=== PATIENT | male | born 1995 | race Caucasian/White ===

== ENCOUNTER 2017-07-08 10:10 | Day surgery (SDC) | payer BC ==
--- NOTE | 2017-07-07 10:15 | HP ---
PREOPERATIVE HISTORY AND PHYSICAL: DATE OF SURGERY/ADMISSION: 07/08/17 - [facility] DATE OF OFFICE VISIT/ENCOUNTER: 07/06/17. ATTENDING SURGEON: Courtney Sifuentes MD.* (DICTATED BY SHANTAL AMBROSIO) PROCEDURE: Right wrist triangular fibrocartilage complex repair or debridement , arthroscopy, scapholunate ligament repair. CHIEF COMPLAINT: Right wrist pain. HISTORY OF PRESENT ILLNESS: This is a 22-year-old male. He is a student at [employer] and he injured his right wrist on 05/16/17. He was playing soccer and fell on an outstretched right hand. He was initially evaluated in [place] and had an x-ray there, which showed no sign of fracture. He was subsequently given some physical therapy exercises to workout on. However, he has continued to have pain since then and ended up seeing his primary care physician, Dr. Ferraro who ordered an MRI. The MRI shows a scapholunate ligament tear and a TFCC tear. The patient had been wearing a thumb spica brace. After evaluation by Dr. Sifuentes and review of the MRI, the patient has consented to proceed with surgical intervention at this time with a right wrist arthroscopy and a TFCC repair, debridement, scapholunate ligament repair. PAST MEDICAL HISTORY: Mal-Schlatter disease. PAST SURGICAL HISTORY: None. CURRENT MEDICATIONS: None. ALLERGIES: AMOXICILLIN causes hives. FAMILY MEDICAL HISTORY: Diabetes, hypertension, stroke, rheumatoid arthritis. 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 He denies tobacco use and recreational drug use. He does drink alcohol on occasion. REVIEW OF SYSTEMS: General: Negative for fevers, chills or night sweats. Unexplained weight loss or gain. No known anesthesia problems. HEENT: Negative for headache, lightheadedness or syncopal episodes, visual changes. Positive for sore throat. Integumentary: Negative for abrasions, lesions or open wounds. Cardiothoracic: Negative for hypertension, chest pain, palpitations, edema. Respiratory: Negative for shortness of breath with exertion, chronic cough, wheezing. GI: Negative for nausea, vomiting, diarrhea , constipation, or GERD. : Negative for nocturia, urinary frequency, urgency , history of UTIs, and kidney problems. Musculoskeletal: Positive for current complaints. Neurologic: Negative for paresthesias, numbness, history of seizure or stroke, poor balance. Endocrine: Negative for diabetes and thyroid issues. Hematologic: Negative for easy bruising, anemia, bleeding disorders, history of DVT. Infectious Disease: Negative for history of MRSA, hepatitis C, HIV. PHYSICAL EXAMINATION GENERAL: Well-developed, well-nourished 22-year-old male, in no acute distress. VITAL SIGNS: Height 5 feet 8 inches, weight 162 pounds, pulse rate 76, and blood pressure 140/78. HEENT: Normocephalic, atraumatic. Pupils are equal, round, and reactive to light and accommodation. Extraocular movements are intact. Throat is clear. NECK: Supple. No palpable lymph nodes. PULMONARY: Lungs are clear to auscultation bilaterally. No wheezes, rales or rhonchi. CARDIOVASCULAR: Regular rate and rhythm. S1, S2. No murmurs, rubs or gallops. No edema. ABDOMEN: Positive bowel sounds, soft, nontender. NEUROLOGICAL: Alert and oriented x3. Cranial nerves II through XII are intact. Sensation is intact to light touch. MUSCULOSKELETAL: On exam of the right wrist, there is no visible swelling or deformity. He has tenderness to palpation at the scapholunate junction and mild tenderness across the radiocarpal joint. Positive Robertson click test. Mild tenderness at the snuff box. He had good motion in his fingers as well as the wrist, but some pain with wrist motion. Neurovascular function is intact. IMAGING STUDIES: MRI shows the scapholunate ligament tear and a TFCC tear on the right. PLAN: The patient is scheduled to undergo a right wrist triangular fibrocartilage complex repair debridement, arthroscopy, scapholunate ligament repair with Dr. Sifuentes on 07/08/17. He will return to the office in 10 days for postoperative followup and suture removal. A prescription for Campbell was e- scribed to the patient's pharmacy for postoperative pain management. SHANTAL AMBROSIO [id number]/[facility] #: [id number] MTDD
[~2017-07-08 10:10] MED LIST: Buffered Lidocaine 0.9% SYRIN* 5 ML/SYR SYRINGE INTRADERM ONE; Bupivacaine 0.5% SDV PF* 30ML VIAL ONE; Sodium Citrate/Citric Acid* 15 ML UDC ONE; Sodium Citrate/Citric Acid* 15 ML UDC PO ONE
[2017-07-08] MEDS ORDERED: Clindamycin 900 MG IVPREMIX(* 900 MG/50 ML SDV IV ONE (10:23)
[2017-07-08] MEDS ORDERED: Midazolam* 1 MG/ML 2 ML VIAL (2 MG) ONE (12:06)
[2017-07-08] MEDS ORDERED: Lidocaine 2% PF * 5 ML VIAL ONE (12:06)
[2017-07-08] MEDS ORDERED: Propofol* 10 MG/ML 20 ML BTL IV PUSH ONE (12:06)
[2017-07-08] MEDS ORDERED: fentaNYL* 50 MCG/ML 2 ML VIAL (100 MCG VIAL) ONE (12:07)
[2017-07-08] MEDS ORDERED: Ketorolac INJ* 30 MG/ML 1 ML VIAL ONE (12:28)
[2017-07-08] MEDS ORDERED: Dexamethasone IV* 4 MG/ML 1 ML (4 MG) ONE (12:28)
[2017-07-08] MEDS ORDERED: fentaNYL* 50 MCG/ML 2 ML VIAL (100 MCG VIAL) IV PRN (12:40)
[2017-07-08] MEDS ORDERED: Naloxone* 0.4 MG/ML 1 ML VIAL IV PRN (12:40)
[2017-07-08] MEDS ORDERED: Ondansetron ODT TAB* 4 MG PO PRN (12:40)
[2017-07-08 13:52] VITALS: BP 132/78
[2017-07-08] MEDS ORDERED: HYDROcodone/ACETAMIN 5-325 MG* 1 TAB ONE (14:20)
--- NOTE | 2017-07-09 05:16 | OP ---
DATE OF OPERATION: 07/08/17 [facility] DATE OF : [birth year] SURGEON: Courtney Sifuentes MD FIELD TALENT QUALIFICATION SPECIALIST: SHANTAL Palacios ANESTHESIA: General. PRE-OP DIAGNOSIS: Scapholunate ligament tear and TFCC tear of the right wrist. POST-OP DIAGNOSIS: TFCC tear of the right wrist. OPERATIVE PROCEDURE: Right wrist arthroscopy and TFCC repair. ESTIMATED BLOOD LOSS: Zero. TOURNIQUET TIME: About 45 minutes. INDICATIONS FOR PROCEDURE: Reji is a 22-year-old male who injured his right wrist playing soccer in the beginning of May. He has persistent wrist pain. His primary care doctor ordered an MRI which showed, by the radiologist reading , a TFCC tear and a scapholunate ligament tear. He presents for right wrist arthroscopy and repair. DESCRIPTION OF PROCEDURE: The patient was brought to the operating room, was given a general anesthetic and placed in the supine position on the operating room table with a tourniquet around his right upper arm. Skin of his right upper extremity was prepped and draped in the usual sterile fashion. The hand and forearm were exsanguinated and the tourniquet elevated to 250 mmHg. The radiocarpal joint was filled with 10 cc of 0.5% plain Marcaine and then a stab incision was made just ulnar and distal to Leandra's tubercle. Hemostat was used to puncture the wrist capsule and then the cannula was placed in the radiocarpal joint. Diagnostic arthroscopy was performed and a second portal was created in the 4-5 interval with an 11 blade. The articular surface of the radius, scaphoid lunate, and triquetrum were in excellent condition. There was no tear of the scapholunate ligament. I was not able to pass the scope between the scaphoid and lunate into the mid carpal joint. There was a tear at the ulnar attachment of the TFCC and some surrounding synovitis. Through the second portal, a 2.0 Gator shaver was placed and the synovitis was debrided. Next, a third stab incision was made just distal to the first and the arthroscope was placed in the mid carpal joint. The articular surface of the scaphoid lunate, triquetrum, capitate, and hamate all were visualized and were in excellent condition. Again, there was no noted tear of the scapholunate ligament. I was not able to pass the arthroscope between the scaphoid and the lunate and there was no gaping. Also no gaping between the lunate and the triquetrum. The arthroscopy instruments were removed and then a longitudinal incision was made on the ulnar aspect of the wrist incorporating the second arthroscopy portal. We dissected bluntly through the subcutaneous tissue and the dorsal ulnar sensory branch was located. This was retracted by the surgical training specialist, SHANTAL Palacios whose assistance was essential to safe completion of the case by protecting the ulnar nerve. The ECU subsheath was then incised longitudinally and the tendon was retracted. We were then able to gain access to the base of the ulnar styloid where the TFCC had a near full thickness tear. A curette was used to rough up the bone and then a single mini Mitek suture anchor was placed after the appropriate hole was drilled and the suture anchors were passed trough the TFCC and it was tied down and secured. The ECU subsheath was then repaired again with the 2-0 Ethibond suture. The dorsal sensory branch of the ulnar nerve was checked and again was intact at the end of the procedure. The skin edges were reapproximated with 4-0 nylon suture. The wound was dressed with Xeroform, 4x4, Webril, and a sugar tong splint. The patient tolerated the procedure well and was brought to the recovery room in good condition. [id number]/[facility] #: [id number] MARIE
== END 2017-07-08 14:38 | disposition home or self-care (01) ==
LOC: OREAST 10:10
PROVIDERS: ATTEND Orthopaedic Surgery
DX: S66.811A Strain of other specified muscles, fascia and tendons at wrist and hand level, right hand, initial encounter (principal); W18.39XA Other fall on same level, initial encounter; Y93.66 Activity, soccer; Y92.322 Soccer field as the place of occurrence of the external cause; M92.50 Unspecified juvenile osteochondrosis of tibia and fibula
CPT/HCPCS: A9270-GY; C1713; J1100; J1885; J2250; J2704; J3010

== ENCOUNTER → 2019-01-10 09:31 | Day surgery (SDC) | payer BC ==
--- NOTE | 2019-01-09 10:41 | HP ---
PREOPERATIVE HISTORY AND PHYSICAL: DATE OF ADMISSION/SURGERY: 01/10/19 DATE OF OFFICE VISIT: 01/09/19 ATTENDING SURGEON: Dr. Kiran Singh.* (DICTATED BY SHANTAL GARCIA) PROCEDURE: Right shoulder arthroscopic posterior labral repair, possible subpectoral biceps tenodesis. CHIEF COMPLAINT: Right shoulder. HISTORY OF PRESENT ILLNESS: Reji is a 23-year-old male who presents to the clinic for followup of right shoulder instability and posterior pain, especially with certain movements and bench press. He has failed conservative measures and therefore has agreed to undergo a right shoulder arthroscopic posterior labral repair, possible subpectoral biceps tenodesis with Dr. Singh on 01/10/19. PAST MEDICAL HISTORY: The patient denies current problems. PAST SURGICAL HISTORY: Right wrist ligament repair. The patient denies prior complications with anesthesia. MEDICATIONS: 1. Diclofenac 75 mg 1 tab bid as needed for pain. 2. Tylenol and ibuprofen as needed. ALLERGIES: AMOXICILLIN. FAMILY HISTORY: Positive for diabetes, hypertension, CVA, stroke, and rheumatoid arthritis. Also father with a history of DVT or PE after surgery. SOCIAL HISTORY: He lives with his parents. He is a student. He denies tobacco use. He reports occasional alcohol consumption. He exercises regularly. He is right-hand dominant. REVIEW OF SYSTEMS: A 14-point review of systems was reviewed with the patient. Positive for current complaint, otherwise negative. Denies numbness, tingling, fever, chills, chest pain, shortness of breath, history of bleeding disorder. Denies history of DVT or PE. PHYSICAL EXAMINATION GENERAL: A 23-year-old well-developed, well-nourished male, in no acute distress. VITAL SIGNS: Height 68, weight 172, pulse 60, blood pressure 126/90, temperature 96.3, BMI of 26.1. HEENT: Normocephalic and atraumatic. PERRLA. NECK: Supple. Throat clear. PULMONARY: Lungs clear to auscultation bilaterally. No wheezing, rhonchi, or rales. CARDIO: Regular rate and rhythm. S1 and S2. No murmurs, gallops, or rubs. No edema. ABDOMEN: Positive bowel sounds. Soft and nontender. MUSCULOSKELETAL: Right upper extremity, skin is intact. No warmth or erythema. Tenderness of the biceps and posterior joint line. Forward flexion to 180, abduction 170, external rotation 75, internal rotation 58. +5/5 strength to rotator cuff testing. Mildly positive impingement, speed, Rios, Graves. Posterior pulse. Sensation intact to light touch distally. NEUROLOGIC: Alert, awake, and oriented x3. Cranial nerves grossly intact. LAB DATA/STUDIES: MRI was independently reviewed by Dr. Singh and revealed a nondisplaced posterior labral tear and distension of posterior joint capsule. IMPRESSION: Right shoulder posterior labral tear and biceps tendonitis. PLAN/RECOMMENDATIONS: The patient is scheduled to undergo a right shoulder arthroscopic posterior labral repair, possible subpectoral biceps tenodesis with Dr. Singh on 01/10/19. He will follow up 10 to 14 days postop and Percocet will be used for postop pain management. SHANTAL GARCIA [id number]/[facility] #: [id number] [facility] SYSTEMJing
[~2019-01-10 09:31] MED LIST changes: -Buffered Lidocaine 0.9% SYRIN* 5 ML/SYR SYRINGE INTRADERM ONE; +Buffered Lidocaine 1% SYRIN* 1 ML/SYRINGE INTRADERM ONE; -Bupivacaine 0.5% SDV PF* 30ML VIAL ONE; +Dexamethasone IV* 4 MG/ML 1 ML (4 MG) IV SLOW PU ONE; +Dexamethasone IV* 4 MG/ML 1 ML (4 MG) ONE; +EPHEDrine (Pressors)* 50 MG/ML VIAL ONE; +Famotidine IV* 10 MG/ML 2 ML (20 mg) IV ONE; +Famotidine IV* 10 MG/ML 2 ML (20 mg) ONE; +Glycopyrrolate IV* 0.2 MG/ML 1 ML VIAL ONE; +Lactated Ringers 1000 ML Bag* 1,000 ML IV SCH; +Lidocaine 2% PF * 5 ML VIAL ONE; +Midazolam* 1 MG/ML 5 ML VIAL (5 MG) ONE; +Neostigmine Methylsulfate* 3 MG/3 ML SYRINGE ONE; +Ondansetron INJ* 2 MG/ML VIAL ONE; +Propofol* 10 MG/ML 20 ML BTL ONE; +ROPIVACAINE 5 MG/ML 30 ML BTL (0.5%) ONE; +Rocuronium* 10 MG/ML VIAL ONE; +Ropivacaine 0.2% * 2 MG/ML VIAL ONE; -Sodium Citrate/Citric Acid* 15 ML UDC ONE; -Sodium Citrate/Citric Acid* 15 ML UDC PO ONE; +ceFAZolin 2 GM in NS PREMIX(*) 2 GM/100 ML BAG IVPB ONE; +fentaNYL* 50 MCG/ML 2 ML VIAL (100 MCG VIAL) ONE
[2019-01-10 13:43] VITALS: BP 138/77
--- NOTE | 2019-01-11 02:34 | OP ---
DATE OF OPERATION: 01/10/19 - [facility] DATE OF : [birth year] SURGEON: Kiran Singh MD CERTIFIED SURGICAL FIRST ASSISTANT: SHANTAL Bobby. An promotions assistant sales marketing was needed for the entirety of the case to help with positioning, retraction, and was utilized throughout all portions of the case. ANESTHESIOLOGIST: Dr. Rascon. ANESTHESIA: General with interscalene block. PRE-OP DIAGNOSES: Right shoulder posterior labral tear with bicipital tendinitis and superior labral fraying. POST-OP DIAGNOSES: Right shoulder posterior labral tear with bicipital tendinitis, superior labral fraying, and right partial-thickness tearing of the rotator cuff. OPERATIVE PROCEDURE: Right shoulder arthroscopy with: 1. Extensive glenohumeral debridement including debridement of the supraspinatus. 2. Posterior labral repair. 3. Open biceps tenodesis. INDICATIONS: Reji Graham is a 23-year-old male, who sustained an injury to his shoulder several months ago. He failed conservative management. He was diagnosed with posterior labral tear. He has persistent pain and limitation in activities. After extensive discussion of the risks and benefits of operative and nonoperative treatment, he elected to proceed with surgical treatment. Risks include, but were not limited to, bleeding; infection; damage to nerves, vessels, surrounding structures; wound nonhealing; persistent pain; need for further surgery; scarring; stiffness; incomplete relief of symptoms; risk of anesthesia. COMPLICATIONS: None. ESTIMATED BLOOD LOSS: Minimal. IMPLANTS USED: Three 2.9 Bioraptor and one 2.8-mm Q-FIX. DESCRIPTION OF PROCEDURE: The patient was greeted in the preoperative area by the attending surgeon. Correct extremity was marked and consent was confirmed. The patient underwent interscalene nerve block. The patient was brought back to the operating suite where he was placed in the supine position and underwent general anesthesia and endotracheal intubation after which he was placed in left lateral decubitus position with axillary roll. All bony prominences were padded. He was secured to the table. The right shoulder was draped unsterile with 10 pounds of traction. The right shoulder was then prepped and draped in the usual sterile fashion beginning with chlorhexidine soap, scrub, and alcohol wipe, and a final prep with ChloraPrep. After appropriate surgical pause indicating side, site, procedure, and administration of antibiotics, a standard postero-lateral portal was made sharply with 11-blade. The scope was introduced into the joint. Joint was examined. There was no evidence of an anterior labral tear or subluxation anteriorly. There was no Hill-Sachs lesion. The subscap was intact. An anterior portal was made in outside-in fashion and a 5-mm cannula was placed. The biceps superiorly had some mild fraying, but the biceps itself had synovitis. The undersurface of the rotator cuff, supraspinatus had compression with a tearing. Shaver was used to debride back the posterior labrum, which had unstable fraying and clearing the superior labrum as well and the undersurface of the supraspinatus tendon. Biceps was then tenotomized for later tenodesis. Attention was directed to the posterior labrum. The scope was brought through the anterior portal and a large 8.5-mm cannula was placed posteriorly. The labrum was then probed. There was evidence of tearing. The labrum was then elevated using the elevator. A red ball rasp as well as a shaver was used to debride the bone to allow for bony bleeding bed after which anchor placement begun beginning inferiorly around the 7 o'clock position. An anchor was placed with excellent purchase. Sutures were then passed in a simple configuration with suture passing device and tied down using arthroscopic knot tying. This was a capsulolabral repair. The capsule was grabbed with each pass. A second anchor was placed at around the 8: 30 position and with excellent purchase. The sutures were then passed in a simple fashion and tied down using arthroscopic knot-tying technique. A third anchor was placed around the 9:30 position in a similar fashion. This was then tied down in a simple fashion using arthroscopic knot-tying technique. This helped to secure the labrum and helped to grab some of the patulous posterior capsule. After this was complete and the final images were obtained, an awl was then used to do a small microfracture along the first part of the posterior aspect of the humerus following which our attention was then directed to the biceps. The bed was airplaned to the right side. The anterior aspect of the shoulder was prepped utilizing ChloraPrep. A 15 blade was used to make an incision in line with the biceps tendon. Soft tissues were carefully dissected to expose the pec tendon, which was lying in the biceps groove. The soft tissue was then brought through the wound and then found to have synovitis. The groove was then prepared in the usual fashion with electrocautery device, red ball rasp, and osteotome. The Q-FIX was then deployed with excellent purchase and sutures were then passed through the tendon in a Thai-Montrell type configuration and then tied down. The excess stump was excised. The wound was then copiously irrigated with sterile saline. The portals were irrigated and closed with 3-0 nylon. The anterior wound was closed in layers with 3-0 Monocryl and a running 3-0 Monocryl. Sterile dressings were applied. A Cryo/Cuff and UltraSling were applied. He was awoken from anesthesia and transferred to the PACU in stable condition. POSTOPERATIVE PLAN: He will be nonweightbearing in the sling for about 4 weeks. Discharged on pain medications. DVT prophylaxis was considered, but deferred due to no previous personal or family history. I will see the patient back in 10 to 14 days. [id number]/[facility] #: [id number] MARIE
== END | disposition home or self-care (01) ==
LOC: OR 09:31
PROVIDERS: ATTEND Orthopaedic Surgery
DX: S43.491A Other sprain of right shoulder joint, initial encounter (principal); M75.21 Bicipital tendinitis, right shoulder; X58.XXXA Exposure to other specified factors, initial encounter; Y92.9 Unspecified place or not applicable; G89.18 Other acute postprocedural pain
CPT/HCPCS: J0690; J1100; J2250; J2405; J2704; J2710; J2795; J3010

== ENCOUNTER 2019-04-23 11:33 | Emergency (ER) | payer BC ==
--- OUTSIDE RECORDS SUMMARY | 2019-04-23 11:39 | XMS REPORT | Continuity of Care Document ---
:1995 External Reference #:[id number] Author Name Kiran Singh MD (transmitted by agent of provider Anna Talbot) Address [address], [facility] [place] [address] Care Team Providers Name Role Phone Ray Ferraro MD - Family Medicine Care Team Information Coupler Problems Active Problems Provider Date Patellar tendonitis Kerrie Eli M.D. Onset: 10/08/2015 Derangement of knee Kerrie Eli M.D. Onset: 08/23/2016 Strain of muscle of long head of biceps brachii Kiran Singh MD Onset: 01/01 Shoulder joint unstable Kiran Singh MD Onset: 01/01/2019 Superior glenoid labrum lesion of right Kiran Singh MD Onset: 01/23/2019 shoulder, subsequent encounter Bicipital tenosynovitis Kiran Singh MD Onset: 01/23/2019 Social History Type Date Description Comments Sex Unknown ETOH Use Never used alcohol ETOH Use Occasionally consumes alcohol Tobacco Use Start: Unknown Patient has never smoked Smoking Status Reviewed: 03/29/19 Patient has never smoked Exercise Type/Frequency Exercises regularly Allergies, Adverse Reactions, Alerts Active Allergies Reaction Severity Comments Date Amoxicillin 10/08/2015 Medications Active Medications SIG Qnty Indications Ordering Provider Date Tylenol Unknown Ibuprofen Unknown History Medications Percocet 1 tabs by mouth 18tabs Kiran Singh MD 01/10/2019 - 5-325mg every 4-6 hours 01/14/2019 Tablets as needed pain. MDD 6 Diclofenac Sodium take 1 by mouth 30tabs M25.311 Kiran Singh MD 2018 - twice a day as 03/28/[address] needed for pain Medications Administered in Office Medication SIG Qnty Indications Ordering Provider Date Depomedrol 40MG Luiz Vaughn MD 08/30/2016 Injection Immunizations Description No Information Available Vital Signs Date Vital Result Comment 03/29/2019 1:32pm Height 68 inches 5'8" Heart Rate 70 /min BP Systolic 128 mmHg BP Diastolic 70 mmHg Body Temperature 96.6 F 02/22/2019 1:47pm Height 68 inches 5'8" Weight 170.00 lb Heart Rate 62 /min BP Systolic Sitting 150 mmHg BP Diastolic Sitting 74 mmHg Respiratory Rate 14 /min Pain Level 1 O2 % BldC Oximetry 99 % BMI (Body Mass Index) 25.8 kg/m2 Results Description No Information Available Procedures Date Code Description Status 01/10/2019 16087 Arthroscopy, Repair Slap Lesion Completed 01/10/2019 96547 Tenodesis Biceps Long Tendon Completed 01/10/2019 06094 Tenodesis Biceps Long Tendon Completed Medical Devices Description No Information Available Encounters Type Date Location Provider Dx Diagnosis Office Visit 11/28/2018 [facility] Kiran Singh MD M25.511 Pain in right 1:30p at [place] shoulder S46.111A Strain of musc/fasc/tend long hd bicep, right arm, init M25.311 Other instability, right shoulder S49.91xA Unsp injury of right shoulder and upper arm, init encntr Assessments Date Code Description Provider 03/29/2019 S46.111D Strain of muscle, fascia and tendon of Kiran Singh MD long head of biceps, right arm, subsequent encounter 03/29/2019 M25.311 Other instability, right shoulder Kiran Singh MD 02/22/2019 M75.21 Bicipital tendinitis, right shoulder Kiran Singh MD 02/22/2019 S43.431D Superior glenoid labrum lesion of right Kiran Singh MD shoulder, subsequent encounter 01/23/2019 M75.21 Bicipital tendinitis, right shoulder Kiran Singh MD 01/23/2019 S43.431D Superior glenoid labrum lesion of right Kiran Singh MD shoulder, subsequent encounter 01/10/2019 S43.431A Superior glenoid labrum lesion of right Diane Elizabeth PA-C shoulder, initial encounter 01/10/2019 S43.431A Superior glenoid labrum lesion of right Kiran Singh MD shoulder, initial encounter 01/10/2019 M75.21 Bicipital tendinitis, right shoulder SHANTAL Bobby 01/10/2019 M75.21 Bicipital tendinitis, right shoulder Kiran Singh MD 01/09/2019 S46.111D Strain of muscle, fascia and tendon of Kiran Singh MD long head of biceps, right arm, subsequent encounter 01/09/2019 S43.431D Superior glenoid labrum lesion of right Kiran Singh MD shoulder, subsequent encounter 01/01/2019 S46.111A Strain of muscle, fascia and tendon of Kiran Singh MD long head of biceps, right arm, initial encounter 01/01/2019 M25.311 Other instability, right shoulder Kiran Singh MD 11/28/2018 M25.511 Pain in right shoulder Kiran Singh MD 11/28/2018 S46.111A Strain of muscle, fascia and tendon of Kiran Singh MD long head of biceps, right arm, initial encounter 11/28/2018 M25.311 Other instability, right shoulder Kiran Singh MD 11/28/2018 S49.91xA Unspecified injury of right shoulder and Kiran Singh MD upper arm, initial encounter Plan of Treatment Future Appointment(s):06/05/2019 1:00 pm - Ray Biswas MD at [facility]/29/2019 - [facility] Weeks46.111D Strain of muscle, fascia and tendon of long head of biceps, right arm, subsequent [id number] Other instability, right shoulderFollow up:Follow up: 2 months biswas Functional Status Description No Information Available Mental Status Description No Information Available Referrals Description No Information Available
--- OUTSIDE RECORDS SUMMARY | 2019-04-23 11:39 | XMS REPORT | Continuity of Care Document ---
:1995 External Reference #:[id number] Author Name Kiran Singh MD (transmitted by agent of provider Anna Talbot) Address [address] [facility], [place] [address] Care Team Providers Name Role Phone Ray Ferraro MD - Family Medicine Care Team Information Cardiopulmonary Technologist Chief Problems Active Problems Provider Date Patellar tendonitis [...] Patient has never smoked Smoking Status Reviewed: 02/22/19 Patient has never smoked Exercise Type/Frequency Exercises regularly Allergies, Adverse Reactions, Alerts Active Allergies Reaction Severity Comments Date Amoxicillin 10/08/2015 Medications Active Medications SIG Qnty Indications Ordering Provider Date Diclofenac Sodium take 1 by mouth 30tabs M25.311 Kiran Singh MD 2018 75mg twice a day as Tablets DR needed for pain Tylenol Unknown Ibuprofen Unknown History Medications Percocet 1 tabs by mouth 18tabs Kiran Singh MD 01/10/2019 - 5-325mg every 4-6 hours as 01/14/2019 Tablets needed pain. MDD 6 Medications Administered in Office Medication SIG Qnty Indications Ordering Provider Date Depomedrol 40MG Luiz Vaughn MD 08/30/2016 Injection Immunizations Description No Information Available Vital Signs Date Vital Result Comment 02/22/2019 1:47pm Height 68 inches 5'8" Weight 170.00 lb Heart Rate 62 /min BP Systolic Sitting 150 mmHg BP Diastolic Sitting 74 mmHg Respiratory Rate 14 /min Pain Level 1 O2 % BldC Oximetry 99 % BMI (Body Mass Index) 25.8 kg/m2 01/23/2019 8:52am Height 68 inches 5'8" Weight 165.00 lb Heart Rate 60 /min BP Systolic 136 mmHg BP Diastolic 68 mmHg Respiratory Rate 18 /min Body Temperature 98.4 F Pain Level 2 BMI (Body Mass Index) 25.1 kg/m2 Results Description No Information Available Procedures Date Code Description Status 01/10/2019 60577 Arthroscopy, Repair Slap Lesion Completed 01/10/2019 42522 Tenodesis Biceps Long Tendon Completed 01/10/2019 67986 Tenodesis Biceps Long Tendon Completed Medical Devices Description No Information Available Encounters Type Date Location Provider Dx Diagnosis Office Visit 11/28/2018 [facility] Kiran Singh MD M25.511 Pain in right 1:30p at [place] shoulder S46.111A Strain of musc/fasc/tend long hd bicep, right arm, init M25.311 Other instability, right shoulder S49.91xA Unsp injury of right shoulder and upper arm, init encntr Assessments Date Code Description Provider 02/22/2019 M75.21 Bicipital tendinitis, right shoulder Kiran [...] arm, initial encounter Plan of Treatment Future Appointment(s):03/22/2019 1:15 pm - Kiran [facility]/22/2019 - Kiran Singh, MDM75.21 Bicipital tendinitis, right oitxiejbY04.431D Superior glenoid labrum lesion of right shoulder, subsequent encounterFollow up:Follow up: beginning of Mar Functional Status Description No Information Available Mental Status Description No Information Available Referrals Description No Information Available
[2019-04-23 11:58] VITALS: BP 133/81
--- NOTE | 2019-04-23 14:04 | ED ---
Abdominal Pain/Male - HPI Summary HPI Summary: 24-year-old white male history of right lower quadrant pain sometimes radiating to left lower abdomen 2-3 weeks, denies pain is related to eating and denies f/c/n/v/d. - History of Current Complaint Chief Complaint: UCAbdominalPain Stated Complaint: LOWER RIGHT ABDOMINAL PAIN Time Seen by Provider: 04/23/19 13:18 Hx Obtained From: Patient Onset/Duration: Lasting Weeks Timing: Lasting Hours Severity Initially: Moderate Severity Currently: Moderate Pain Intensity: 7 Location: Discrete At: RLQ Radiates to: RLQ Character: Sharp, Dull Aggravating Factor(s): Nothing Alleviating Factor(s): Nothing Associated Signs And Symptoms: Negative: Fever, Decreased Appetite, Nausea, Vomiting, Diarrhea - Allergies/Home Medications Allergies/Adverse Reactions: Allergies Allergy/AdvReac Type Severity Reaction Status Date / Time amoxicillin Allergy Hives Verified 04/23/19 11:59 Home Medications: Home Medications Aspirin/Acetaminophen/Caffeine [Excedrin Migraine Caplet] 2 each PO ONCE PRN [History Confirmed 04/23/19] Ibuprofen TAB* [Advil TAB*] 600 mg PO Q6H PRN 01/05/19 [History Confirmed ] PMH/Surg Hx/FS Hx/Imm Hx Previously Healthy: Yes Endocrine/Hematology History: Denies: Hx Diabetes Cardiovascular History: Denies: Hx Hypertension, Hx Pacemaker/ICD, Other Cardiovascular Problems/ Disorders Respiratory History: Denies: Other Respiratory Problems/Disorders GI History: Denies: Other GI Disorders History: Denies: Hx Renal Disease, Other Problems/Disorders Musculoskeletal History: Denies: Other Musculoskeletal History Sensory History: Reports: Hx Contacts or Glasses - INSTRUCTS GIVEN Denies: Hx Hearing Aid Opthamlomology History: Reports: Hx Contacts or Glasses - INSTRUCTS GIVEN Neurological History: Reports: Hx Migraine - 2-3 PER MONTH-TREATS WITH EXCEDRIN MIGRAINE Denies: Other Neuro Impairments/Disorders Psychiatric History: Denies: Hx Panic Disorder - Cancer History Hx Chemotherapy: No Hx Radiation Therapy: No - Surgical History Surgery Procedure, Year, and Place: RIGHT WRIST TENDON REPAIR- shoulder right Hx Anesthesia Reactions: No Infectious Disease History: No Infectious Disease History: Denies: Hx Clostridium Difficile, Hx Hepatitis, Hx Human Immunodeficiency Virus (HIV), Hx of Known/Suspected MRSA, Hx Shingles, Hx Tuberculosis, Hx Known/ Suspected VRE, Hx Known/Suspected VRSA, History Other Infectious Disease, Traveled Outside the [place] in Last 30 Days - Family History Known Family History: Positive: Unknown - Social History Alcohol Use: Weekly Alcohol Amount: 5 DRINKS PER WEEK Substance Use Type: Reports: None Smoking Status (MU): Never Smoked Tobacco Have You Smoked in the Last Year: No Review of Systems Negative: Fever, Chills Eyes: Negative ENT: Negative Cardiovascular: Negative Respiratory: Negative Gastrointestinal: Other Positive: Abdominal Pain. Negative: Vomiting, Diarrhea, Nausea Genitourinary: Negative Musculoskeletal: Negative Skin: Negative Neurological/Mental Status: Negative Psychological: Normal All Other Systems Reviewed And Are Negative: Yes Physical Exam - Summary Physical Exam Summary: Reviewed: Yes Eye Exam: Normal Eyes: Positive: Conjunctiva Clear ENT: Positive: Normal ENT inspection Neck: Positive: Supple Respiratory Exam: Normal Respiratory: Positive: Lungs clear, Normal breath sounds. Negative: Crackles, Rhonchi, Stridor, Wheezing Cardiovascular Exam: Normal, RRR, S1, S2 Abdomen:mild to moderate RLQ tenderness and lower abd pain Musculoskeletal Exam: Normal Neurological Exam: Normal Psychological Exam: Normal Skin Exam: Normal Triage Information Reviewed: Yes Vital Signs On Initial Exam: Reviewed: Yes Eye Exam: Normal Eyes: Positive: Conjunctiva Clear ENT: Positive: Normal ENT inspection Neck: Positive: Supple Respiratory Exam: Normal Respiratory: Positive: Lungs clear, Normal breath sounds. Negative: Crackles, Rhonchi, Stridor, Wheezing Cardiovascular Exam: Normal, RRR, S1, S2 Abdomen: NT/ND Musculoskeletal Exam: Normal Neurological Exam: Normal Psychological Exam: Normal Skin Exam: Normal Diagnostics - Vital Signs Vital Signs Temp Pulse Resp BP Pulse Ox 04/23/19 11:56 37.1 C 87 15 133/81 100 - Laboratory Lab Statement: Any lab studies that have been ordered have been reviewed, and results considered in the medical decision making process. Abdominal Pain Male Course/Dx - Course Assessment/Plan: CT abd - 0.2 cm nonobstructing stones on left w/o hydro and pain may be referred pain to right from left renal colic, UA has trace blood, suspect renal colic, appendix WNL, advised hydration - Diagnoses Provider Diagnoses: RLQ abdominal pain, Renal colic on left side Discharge ED - Sign-Out/Discharge Documenting (check all that apply): Patient Departure All imaging exams completed and their final reports reviewed: Yes - Discharge Plan Condition: Stable Disposition: HOME Patient Education Materials: Kidney Stones (ED) Referrals: Ray Ferraro MD [Primary Care Provider] - - Billing Disposition and Condition Condition: STABLE Disposition: Home
== END 2019-04-23 15:45 | disposition home or self-care (01) ==
LOC: UCEAST 11:33
DX: R10.31 Right lower quadrant pain (principal); N23 Unspecified renal colic; Z88.0 Allergy status to penicillin; Z79.82 Long term (current) use of aspirin
CPT/HCPCS: 74176; 99211; G0463